=== PATIENT | female | born 1950 | race Caucasian/White ===

== ENCOUNTER 2022-04-16 21:46 | Inpatient (IN) | payer BC ==
[2022-04-16] MEDS ORDERED: NALOXONE HCL 0.4 MG/ML VIAL IM ONE (22:08)
[2022-04-16] MEDS ORDERED: LACTATED RINGERS SOLUTION 1000 ML INFUS.BAG IV ONE ×2 (22:09→23:32)
[2022-04-16 22:39] LABS: VENOUS BASE EXCESS 1.1 mmol/L (-2-2); VENOUS O2 SATURATION 59.3 % (70-80); VENOUS PCO2 47.2 mmHg (38-52); VENOUS PH 7.373 (7.310-7.410)
[2022-04-16 22:42] LABS: BASO % 0.6 % (0-2.0); EOS % 2.6 % (0-4.5); HEMATOCRIT 36.5 % (32.4-45.2); HEMOGLOBIN 12.6 GM/dL (10.7-15.3); LYMPH % 35.2 % (8-40); MCH 32.1 pg (25.7-33.7); MCHC 34.4 g/dl (32.0-36.0); MEAN CELL VOLUME 93.4 fl (80-96); MEAN PLT VOLUME 9.2 fl (7.5-11.1); NEUT % 53.6 % (42.8-82.8); PLATELET COUNT 134 10^3/uL (134-434); RBC 3.91 M/mm3 (3.60-5.2); RDW 13.1 % (11.6-15.6); WHITE BLOOD COUNT 10.1 K/mm3 (4.0-10.0)
[2022-04-16 23:00] LABS: CHLORIDE 109 mmol/L (98-107); SODIUM 145 mmol/L (136-145)
[2022-04-16 23:02] LABS: CALCIUM 8.3 mg/dL (8.5-10.1)
[2022-04-16 23:03] LABS: ALBUMIN 3.2 g/dl (3.4-5.0); ANION GAP 5 MMOL/L (8-16); CO2 30 mmol/L (21-32); GLUCOSE,RANDOM 103 mg/dL (74-106)
[2022-04-16 23:06] LABS: CREATININE 0.6 mg/dL (0.55-1.3); SGOT/AST 61 U/L (15-37); SGPT/ALT 109 U/L (13-61)
[2022-04-16 23:08] LABS: BILIRUBIN,TOTAL 0.8 mg/dL (0.2-1); TOT PROT 5.7 g/dl (6.4-8.2)
[2022-04-16 23:09] LABS: ALK PHOS 49 U/L (45-117)
[2022-04-17 00:13] LABS: INR 1.06 (0.83-1.09); PROTHROMBIN TIME (PATIENT) 12.2 SEC (9.7-13.0)
[2022-04-17 00:16] LABS: ACTIVATED PTT 26.6 SECONDS (25.2-36.5)
[2022-04-17] MEDS ORDERED: POLYETHYLENE GLYCOL (HEALTHYLAX) 3350 17 GM PACKET PO PRN (01:06)
[2022-04-17] MEDS ORDERED: ACETAMINOPHEN 325 MG TABLET (FP) PO PRN (01:06)
[2022-04-17] MEDS ORDERED: DEXTROSE 5%-NORMAL SALINE 1,000 ML IV SCH (01:15)
[2022-04-17 01:21] LABS: PH,URINE 5.5 (5.0-8.0); URINE APPEARANCE CLEAR; URINE BILIRUBIN NEGATIVE (NEGATIVE); URINE COLOR DK YELLOW; URINE GLUCOSE (UA) NEGATIVE (NEGATIVE); URINE KETONE TRACE (NEGATIVE); URINE LEUK ESTERASE NEGATIVE (NEGATIVE); URINE NITRITE NEGATIVE (NEGATIVE); URINE PROTEIN TRACE (NEGATIVE)
[2022-04-17 01:31] LABS: PHENCYCLIDINE,URINE NEGATIVE (NEGATIVE); URINE BARBITURATES NEGATIVE (NEGATIVE)
[2022-04-17 01:32] LABS: COCAINE, UR NEGATIVE (NEGATIVE); METHADONE, UR NEGATIVE (NEGATIVE); URINE AMPHETAMINES NEGATIVE (NEGATIVE)
[2022-04-17 01:33] LABS: OPIATES, URI POSITIVE (NEGATIVE); URINE BENZODIAZEPINES POSITIVE (NEGATIVE)
[2022-04-17] MEDS ORDERED: LACTATED RINGERS SOLUTION 1000 ML INFUS.BAG IV ONE (01:45)
[2022-04-17] MEDS ORDERED: levETIRAcetam 500 MG/5 ML INJECTION VIAL IVPB ONE ×4 (01:54→10:06)
[2022-04-17] MEDS: levETIRAcetam 500 MG/5 ML INJECTION VIAL IVPB ONE ×2 (01:56→04:32)
[2022-04-17] MEDS ORDERED: THIAMINE HCL 200 MG/2 ML VIAL IVPB ONE (03:10)
[2022-04-17] MEDS ORDERED: THIAMINE HCL 200 MG/2 ML VIAL ONE (03:37)
[2022-04-17] MEDS: DEXTROSE 5%-NORMAL SALINE 1,000 ML IV SCH (05:30)
[2022-04-17] MEDS ORDERED: HEPARIN NA (PORCINE) 5,000 UNITS/ML 1ML VIAL ONE ×2 (08:52→14:00)
[2022-04-17] MEDS: HEPARIN NA (PORCINE) 5,000 UNITS/ML 1ML VIAL SQ SCH ×3 (09:00→22:00)
[2022-04-17] MEDS: levETIRAcetam 500 MG/5 ML INJECTION VIAL IVPB SCH (10:20)
[2022-04-17] MEDS: LEVOTHYROXINE SODIUM 100 MCG VIAL IVPUSH SCH (10:24)
[2022-04-18] MEDS: levETIRAcetam 500 MG/5 ML INJECTION VIAL IVPB SCH ×3 (07:18→21:51)
[2022-04-18] MEDS: HEPARIN NA (PORCINE) 5,000 UNITS/ML 1ML VIAL SQ SCH ×3 (07:20→21:50)
[2022-04-18] MEDS ORDERED: levETIRAcetam 500 MG/5 ML INJECTION VIAL IVPB ONE (07:27)
[2022-04-18] MEDS: LEVOTHYROXINE SODIUM 100 MCG VIAL IVPUSH SCH (11:18)
[2022-04-18] MEDS: DEXTROSE 5%-NORMAL SALINE 1,000 ML IV SCH (16:17)
[2022-04-18] MEDS ORDERED: PNEUMOC 20-VAL CONJ-DIP CRM/PF 0.5 ML SYRINGE IM ONE (16:54)
[2022-04-19] MEDS: DEXTROSE 5%-NORMAL SALINE 1,000 ML IV SCH (02:15)
[2022-04-19] MEDS: HEPARIN NA (PORCINE) 5,000 UNITS/ML 1ML VIAL SQ SCH ×3 (06:40→22:35)
[2022-04-19] MEDS: LEVOTHYROXINE NA 25 MCG TABLET (FP) PO SCH (06:40)
[2022-04-19] MEDS: levETIRAcetam 500 MG/5 ML INJECTION VIAL IVPB SCH ×2 (09:36→22:36)
[2022-04-19] MEDS ORDERED: LORazepam 2 MG/ML SDV VIAL IM PRN (13:27)
[2022-04-19] MEDS ORDERED: methaDONE HCL 10 MG TABLET PO SCH (13:30)
[2022-04-19] MEDS ORDERED: methaDONE HCL 10 MG TABLET PO ONE (14:45)
[2022-04-19] MEDS: AMINO ACIDS/PROTEIN HYDROLYS 30 ML LIQUID.PKT PO SCH (18:20)
[2022-04-20] MEDS: HEPARIN NA (PORCINE) 5,000 UNITS/ML 1ML VIAL SQ SCH (07:01)
[2022-04-20] MEDS: LEVOTHYROXINE NA 25 MCG TABLET (FP) PO SCH (07:01)
[2022-04-20] MEDS ORDERED: methaDONE HCL 10 MG TABLET PO ONE ×2 (09:15→10:00)
[2022-04-20 09:18] LABS: BASO % 0.7 % (0-2.0); EOS % 2.4 % (0-4.5); HEMATOCRIT 39.9 % (32.4-45.2); HEMOGLOBIN 13.6 GM/dL (10.7-15.3); LYMPH % 26.9 % (8-40); MCH 31.7 pg (25.7-33.7); MEAN PLT VOLUME 9.6 fl (7.5-11.1); MONO % 10.9 % (3.8-10.2); NEUT % 59.1 % (42.8-82.8); PLATELET COUNT 148 10^3/uL (134-434); RBC 4.29 M/mm3 (3.60-5.2); RDW 13.2 % (11.6-15.6); WHITE BLOOD COUNT 8.2 K/mm3 (4.0-10.0)
[2022-04-20] MEDS ORDERED: cloNIDine HCL 0.1 MG TABLET PO PRN (09:27)
[2022-04-20] MEDS ORDERED: clonazePAM 0.5 MG ODT TABLETS SL PRN (09:27)
[2022-04-20] MEDS ORDERED: methaDONE HCL 10 MG TABLET (FOR DETOX USE ONLY) PO ONE (10:00)
[2022-04-20 10:03] LABS: CALCIUM 8.4 mg/dL (8.5-10.1)
[2022-04-20 10:04] LABS: ALBUMIN 3.2 g/dl (3.4-5.0); BLOOD UREA NITROGEN 8.3 mg/dL (7-18)
[2022-04-20 10:06] LABS: CREATININE 0.5 mg/dL (0.55-1.3)
[2022-04-20 10:08] LABS: TOT PROT 5.6 g/dl (6.4-8.2)
[2022-04-20 10:09] LABS: BILIRUBIN,TOTAL 0.7 mg/dL (0.2-1)
[2022-04-20] MEDS: levETIRAcetam 500 MG/5 ML INJECTION VIAL IVPB SCH (10:13)
[2022-04-20] MEDS: AMINO ACIDS/PROTEIN HYDROLYS 30 ML LIQUID.PKT PO SCH ×2 (10:13→18:09)
[2022-04-20] MEDS: MULTIVITAMINS (DAILY MVI) TABLET (FP) PO SCH (10:13)
[2022-04-20] MEDS: DEXTROSE 5%-NORMAL SALINE 1,000 ML IV SCH ×3 (10:22→22:09)
[2022-04-20] MEDS: ENOXAPARIN NA (PORCINE) 40 MG/0.4 ML DISP.SYRIN SQ SCH (12:25)
[2022-04-20] MEDS ORDERED: POTASSIUM CHLORIDE ORAL LIQUID 20 MEQ/15 ML PO ONE (15:00)
[2022-04-20] MEDS ORDERED: LORazepam 2 MG/ML SDV VIAL IM PRN (21:17)
[2022-04-20] MEDS ORDERED: POLYETHYLENE GLYCOL (HEALTHYLAX) 3350 17 GM PACKET PO PRN (21:17)
[2022-04-21] MEDS: ACETAMINOPHEN 325 MG TABLET (FP) PO PRN (03:09)
[2022-04-21] MEDS: LEVOTHYROXINE NA 25 MCG TABLET (FP) PO SCH (06:23)
[2022-04-21] MEDS: AMINO ACIDS/PROTEIN HYDROLYS 30 ML LIQUID.PKT PO SCH ×2 (08:31→17:19)
[2022-04-21] MEDS ORDERED: methaDONE HCL 10 MG TABLET ONE (09:21)
[2022-04-21] MEDS: MULTIVITAMINS (DAILY MVI) TABLET (FP) PO SCH (09:23)
[2022-04-21] MEDS: ENOXAPARIN NA (PORCINE) 40 MG/0.4 ML DISP.SYRIN SQ SCH (09:23)
[2022-04-21] MEDS ORDERED: ENOXAPARIN NA (PORCINE) 40 MG/0.4 ML DISP.SYRIN SQ SCH (10:00)
[2022-04-21 10:01] LABS: CALCIUM 8.3 mg/dL (8.5-10.1)
[2022-04-21 10:02] LABS: BLOOD UREA NITROGEN 13.2 mg/dL (7-18); MAGNESIUM 2.1 mg/dL (1.8-2.4)
[2022-04-21 10:04] LABS: CREATININE 0.5 mg/dL (0.55-1.3)
[2022-04-21] MEDS ORDERED: POTASSIUM CHLORIDE TABS 20 MEQ TABLET.ER (FP) PO ONE (15:12)
[2022-04-21] MEDS: MELATONIN 5 MG TABLETS PO PRN (23:03)
[2022-04-22] MEDS: LEVOTHYROXINE NA 25 MCG TABLET (FP) PO SCH (06:17)
[2022-04-22] MEDS: ENOXAPARIN NA (PORCINE) 40 MG/0.4 ML DISP.SYRIN SQ SCH (09:47)
[2022-04-22] MEDS: MULTIVITAMINS (DAILY MVI) TABLET (FP) PO SCH (09:47)
[2022-04-22] MEDS: AMINO ACIDS/PROTEIN HYDROLYS 30 ML LIQUID.PKT PO SCH ×2 (09:48→18:38)
[2022-04-22] MEDS ORDERED: methaDONE HCL 10 MG TABLET PO ONE (10:00)
[2022-04-22 10:40] LABS: BASO % 0.6 % (0-2.0); EOS % 1.7 % (0-4.5); HEMATOCRIT 40.6 % (32.4-45.2); HEMOGLOBIN 13.8 GM/dL (10.7-15.3); LYMPH % 19.6 % (8-40); MEAN PLT VOLUME 8.6 fl (7.5-11.1); MONO % 13.7 % (3.8-10.2); NEUT % 64.4 % (42.8-82.8); PLATELET COUNT 139 10^3/uL (134-434); RBC 4.32 M/mm3 (3.60-5.2); RDW 13.4 % (11.6-15.6)
[2022-04-22 11:02] LABS: CALCIUM 8.6 mg/dL (8.5-10.1); MAGNESIUM 2.2 mg/dL (1.8-2.4)
[2022-04-22 11:03] LABS: BLOOD UREA NITROGEN 12.3 mg/dL (7-18)
[2022-04-22 11:07] LABS: CREATININE 0.5 mg/dL (0.55-1.3)
[2022-04-23] MEDS: DEXTROSE 5%-NORMAL SALINE 1,000 ML IV SCH (00:23)
[2022-04-23] MEDS: MELATONIN 5 MG TABLETS PO PRN ×2 (00:26→21:55)
[2022-04-23] MEDS: LEVOTHYROXINE NA 25 MCG TABLET (FP) PO SCH (06:48)
[2022-04-23] MEDS: ACETAMINOPHEN 325 MG TABLET (FP) PO PRN (06:52)
[2022-04-23] MEDS ORDERED: methaDONE HCL 10 MG TABLET ONE (10:20)
[2022-04-23] MEDS: MULTIVITAMINS (DAILY MVI) TABLET (FP) PO SCH (10:23)
[2022-04-23] MEDS: AMINO ACIDS/PROTEIN HYDROLYS 30 ML LIQUID.PKT PO SCH ×2 (10:23→18:08)
[2022-04-23] MEDS: ENOXAPARIN NA (PORCINE) 40 MG/0.4 ML DISP.SYRIN SQ SCH (10:28)
[2022-04-23 16:08] VITALS: BMI 26.0
[2022-04-23] MEDS: levETIRAcetam 500 MG TABLET (FP) PO SCH (21:55)
[2022-04-24] MEDS: LEVOTHYROXINE NA 25 MCG TABLET (FP) PO SCH (06:03)
[2022-04-24] MEDS: MULTIVITAMINS (DAILY MVI) TABLET (FP) PO SCH (09:52)
[2022-04-24] MEDS: AMINO ACIDS/PROTEIN HYDROLYS 30 ML LIQUID.PKT PO SCH (09:54)
[2022-04-24] MEDS: levETIRAcetam 500 MG TABLET (FP) PO SCH (09:54)
[2022-04-24] MEDS: ENOXAPARIN NA (PORCINE) 40 MG/0.4 ML DISP.SYRIN SQ SCH (09:55)
[2022-04-24] MEDS ORDERED: methaDONE HCL 10 MG TABLET PO ONE (10:00)
[2022-04-24 13:28] VITALS: BP 120/74; PULSE 90; TEMP 97.7
== END 2022-04-24 15:13 | disposition other institution (70) | DRG 917 ==
LOC: JER 21:46 → JERBED 04-17 00:34 → J4W 04-18 15:43 → J5S 04-20 14:04
PROVIDERS: ADMIT Hospitalist; ATTEND Internal Medicine
DX: T40.1X1A Poisoning by heroin, accidental (unintentional), initial encounter (principal); J96.01 Acute respiratory failure with hypoxia; F11.23 Opioid dependence with withdrawal; Y92.89 Other specified places as the place of occurrence of the external cause; R56.9 Unspecified convulsions; E87.6 Hypokalemia; I95.2 Hypotension due to drugs; E03.9 Hypothyroidism, unspecified; F17.210 Nicotine dependence, cigarettes, uncomplicated; D72.829 Elevated white blood cell count, unspecified; R41.82 Altered mental status, unspecified
CPT/HCPCS: 36415; 70450-TC; 71045-TC-FY; 80048; 80053; 80307; 81003; 82803; 82962; 83605; 83735; 84439; 84443; 84480; 84484; 85025; 85610; 85730; 86850; 86900; 86901; 87040; 87086; 90677; 93005; 93010; 99291; C9803-CS; J1644; U0003; U0005